=== PATIENT | female | born 1960 | race Caucasian/White ===

== ENCOUNTER 2022-05-16 14:33 | Outpatient (RCR) | payer OTHER, SELFPAY ==
[2022-05-16 15:02] LABS: Basophils Absolute Auto 0.02 K/uL (0.00-0.30); Basophils Percent Auto 0.3 % (0.0-3.0); Eosinophils Absolute Auto 0.15 K/uL (0.00-0.50); Eosinophils Percent Auto 2.1 % (0.0-7.0); Hematocrit 41.3 % (33.0-51.0); Hemoglobin* 14.2 gm/dL (12.0-16.0); Immature Granulocytes Abs Auto 0.02 K/uL (0.00-0.30); Lymphocytes Absolute Auto 2.34 K/uL (0.90-2.90); Lymphocytes Percent Auto 33.2 % (20-44); Mean Corpuscular HGB Conc 34 gm/dL (32-36); Mean Corpuscular Hemoglobin 39 pg (26-34); Mean Corpuscular Volume 112 fL (80-100); Monocytes Percent Auto 5.5 % (0.0-11.0); Neutrophils Absolute Auto 4.13 K/uL (1.7-7.0); Neutrophils Percent Auto 58.6 % (42.0-72.0); Platelet Count* 394 K/uL (140-440); RDW Coefficient of Variation % 12.7 % (11.5-15.5); Red Blood Count 3.68 m/uL (4.00-5.20); White Blood Count* 7.05 K/uL (4.50-11.00)
[2022-05-16 15:17] LABS: Slide Review Reflex No
[2022-05-16 15:20] LABS: Albumin* 4.3 g/dL (3.3-5.0); Chloride* 102 mmol/L (96-114); Potassium* 4.2 mmol/L (3.6-5.1); Sodium* 135 mmol/L (135-149)
[2022-05-16 15:22] LABS: Creatinine* 0.8 mg/dL (0.5-1.5); Estimated Glomerular Filt Rate 84 ml/min
[2022-05-16 15:23] LABS: Alanine Aminotransferase* 14 U/L (4-35); Alkaline Phosphatase* 73 U/L (40-150); Aspartate Amino Transferase* 27 U/L (12-35); Bilirubin Total* 0.7 mg/dL (0.1-1.5); Blood Urea Nitrogen* 16 mg/dL (7-30); Calcium* 9.5 mg/dL (8.4-10.6); Carbon Dioxide* 29 mmol/L (20-32); Glucose* 94 mg/dL (60-115); Lactate Dehydrogenase* 434 U/L (313-618)
== END 2022-05-28 23:59 | disposition home or self-care (01) ==
LOC: CCIC 14:33
PROVIDERS: PCP Family Medicine; Visit Provider Internal Medicine Hematology & Oncology
DX: D47.3 Essential (hemorrhagic) thrombocythemia (principal); F43.9 Reaction to severe stress, unspecified
CPT/HCPCS: 36415; 80053; 83615; 85025; 99212; 99213; 99214

== ENCOUNTER 2022-12-20 08:30 | Outpatient (RCR) | payer OTHER, SELFPAY ==
[2022-07-17 09:18] LABS: Basophils Absolute Auto 0.02 K/uL (0.00-0.30); Basophils Percent Auto 0.3 % (0.0-3.0); Eosinophils Absolute Auto 0.14 K/uL (0.00-0.50); Eosinophils Percent Auto 1.9 % (0.0-7.0); Hematocrit 40.4 % (33.0-51.0); Immature Granulocytes Abs Auto 0.02 K/uL (0.00-0.30); Lymphocytes Absolute Auto 1.91 K/uL (0.90-2.90); Mean Corpuscular HGB Conc 35 gm/dL (32-36); Mean Corpuscular Hemoglobin 39 pg (26-34); Mean Corpuscular Volume 111 fL (80-100); Monocytes Percent Auto 6.1 % (0.0-11.0); Neutrophils Percent Auto 65.4 % (42.0-72.0); Platelet Count* 398 K/uL (140-440); RDW Coefficient of Variation % 12.8 % (11.5-15.5); Red Blood Count 3.63 m/uL (4.00-5.20); White Blood Count* 7.34 K/uL (4.50-11.00)
[2022-07-17 09:21] LABS: Slide Review Reflex No
[2022-07-17 09:33] LABS: Albumin* 4.4 g/dL (3.3-5.0)
[2022-07-17 09:34] LABS: Chloride* 104 mmol/L (96-114); Potassium* 4.9 mmol/L (3.6-5.1); Sodium* 139 mmol/L (135-149)
[2022-07-17 09:36] LABS: Aspartate Amino Transferase* 20 U/L (12-35); Bilirubin Total* 0.5 mg/dL (0.1-1.5); Carbon Dioxide* 28 mmol/L (20-32); Creatinine* 0.8 mg/dL (0.5-1.5); Estimated Glomerular Filt Rate 84 ml/min; Total Protein* 7.3 g/dL (6.0-8.3)
[2022-07-17 09:37] LABS: Alanine Aminotransferase* 13 U/L (4-35); Alkaline Phosphatase* 76 U/L (40-150); Blood Urea Nitrogen* 15 mg/dL (7-30); Calcium* 9.3 mg/dL (8.4-10.6); Glucose* 90 mg/dL (60-115); Lactate Dehydrogenase* 444 U/L (313-618)
--- NOTE | 2022-07-18 15:25 | ONC.NURNOTE ---
Labs reviewed by Dr. Negron, keno writer / runner called pt with results. No changes at this time. Next lab scheduled in August.
[2022-09-19 08:21] LABS: Basophils Absolute Auto 0.02 K/uL (0.00-0.30); Basophils Percent Auto 0.2 % (0.0-3.0); Eosinophils Percent Auto 2.2 % (0.0-7.0); Hematocrit 43.8 % (33.0-51.0); Immature Granulocytes Abs Auto 0.07 K/uL (0.00-0.30); Immature Granulocytes Pct Auto 0.8 %; Lymphocytes Percent Auto 27.9 % (20-44); Mean Corpuscular HGB Conc 34 gm/dL (32-36); Mean Corpuscular Hemoglobin 38 pg (26-34); Mean Corpuscular Volume 110 fL (80-100); Monocytes Percent Auto 6.8 % (0.0-11.0); Neutrophils Absolute Auto 5.57 K/uL (1.7-7.0); Neutrophils Percent Auto 62.1 % (42.0-72.0); Platelet Count* 491 K/uL (140-440); RDW Coefficient of Variation % 12.7 % (11.5-15.5); Red Blood Count 3.97 m/uL (4.00-5.20); White Blood Count* 8.97 K/uL (4.50-11.00)
[2022-09-19 08:26] LABS: Slide Review Reflex No
--- NOTE | 2022-09-19 08:44 | ONC.NURNOTE ---
Pt here for labs today; due for labs/f/u 10/2022. Reviewed provider options; pt opted to continue care at [facility] with a [place] provider. Sched with Dr. Tova Vincent 11/23.
--- NOTE | 2022-09-19 13:17 | ONC.NURNOTE ---
Lab results reviewed and called to [facility] as stable no dose change in hydrea and next appts have been made
[2022-11-23 11:06] LABS: Basophils Absolute Auto 0.02 K/uL (0.00-0.30); Basophils Percent Auto 0.2 % (0.0-3.0); Eosinophils Absolute Auto 0.13 K/uL (0.00-0.50); Eosinophils Percent Auto 1.5 % (0.0-7.0); Hematocrit 43.2 % (33.0-51.0); Hemoglobin* 14.9 gm/dL (12.0-16.0); Immature Granulocytes Abs Auto 0.05 K/uL (0.00-0.30); Immature Granulocytes Pct Auto 0.6 %; Lymphocytes Absolute Auto 2.08 K/uL (0.90-2.90); Lymphocytes Percent Auto 24.5 % (20-44); Mean Corpuscular HGB Conc 35 gm/dL (32-36); Mean Corpuscular Hemoglobin 37 pg (26-34); Mean Corpuscular Volume 108 fL (80-100); Monocytes Percent Auto 5.3 % (0.0-11.0); Neutrophils Absolute Auto 5.76 K/uL (1.7-7.0); Neutrophils Percent Auto 67.9 % (42.0-72.0); Platelet Count* 508 K/uL (140-440); RDW Coefficient of Variation % 12.8 % (11.5-15.5); Red Blood Count 3.99 m/uL (4.00-5.20); White Blood Count* 8.49 K/uL (4.50-11.00)
[2022-11-23 11:18] LABS: Albumin* 4.5 g/dL (3.3-5.0); Chloride* 105 mmol/L (96-114)
[2022-11-23 11:19] LABS: Potassium* 4.6 mmol/L (3.6-5.1); Sodium* 139 mmol/L (135-149)
[2022-11-23 11:21] LABS: Alkaline Phosphatase* 65 U/L (40-150); Aspartate Amino Transferase* 32 U/L (12-35); Bilirubin Total* 0.6 mg/dL (0.1-1.5); Carbon Dioxide* 30 mmol/L (20-32); Creatinine* 0.8 mg/dL (0.5-1.5); Estimated Glomerular Filt Rate 83 ml/min; Total Protein* 7.5 g/dL (6.0-8.3)
[2022-11-23 11:22] LABS: Alanine Aminotransferase* 19 U/L (4-35); Blood Urea Nitrogen* 14 mg/dL (7-30); Calcium* 9.5 mg/dL (8.4-10.6); Glucose* 126 mg/dL (60-115); Lactate Dehydrogenase* 213 U/L (120-246)
[2022-11-23 11:27] LABS: Slide Review Reflex Yes
[2022-11-23 11:28] LABS: Slide Review Acceptable Review (Acceptable)
[2022-12-20 08:32] LABS: Basophils Absolute Auto 0.03 K/uL (0.00-0.30); Basophils Percent Auto 0.4 % (0.0-3.0); Eosinophils Percent Auto 2.6 % (0.0-7.0); Hematocrit 47.3 % (33.0-51.0); Hemoglobin* 16.1 gm/dL (12.0-16.0); Immature Granulocytes Abs Auto 0.09 K/uL (0.00-0.30); Immature Granulocytes Pct Auto 1.2 %; Lymphocytes Absolute Auto 2.09 K/uL (0.90-2.90); Lymphocytes Percent Auto 26.9 % (20-44); Mean Corpuscular HGB Conc 34 gm/dL (32-36); Mean Corpuscular Hemoglobin 37 pg (26-34); Mean Corpuscular Volume 109 fL (80-100); Neutrophils Absolute Auto 4.81 K/uL (1.7-7.0); Neutrophils Percent Auto 61.9 % (42.0-72.0); Platelet Count* 483 K/uL (140-440); RDW Coefficient of Variation % 13.1 % (11.5-15.5); Red Blood Count 4.34 m/uL (4.00-5.20); White Blood Count* 7.76 K/uL (4.50-11.00)
[2022-12-20 08:44] LABS: Slide Review Reflex No
--- NOTE | 2022-12-27 13:04 | ONC.NURNOTE ---
Lab results reviewed by Dr Toribio and called to [facility] noted Hg and Plts next lab due in 2 months
== END 2023-01-13 23:59 | disposition home or self-care (01) ==
LOC: CCIC 08:30
PROVIDERS: Clinical Nurse Specialist; Internal Medicine Hematology & Oncology; PCP Family Medicine; Referring Provider Family Medicine; Visit Provider Internal Medicine Hematology & Oncology
DX: D47.3 Essential (hemorrhagic) thrombocythemia (principal)
CPT/HCPCS: 36415; 80053; 83615; 85025; 99212; 99214

== ENCOUNTER 2023-06-12 08:15 | Outpatient (RCR) | payer OTHER, SELFPAY ==
[2023-02-13 08:48] LABS: Albumin* 4.4 g/dL (3.3-5.0); Chloride* 103 mmol/L (96-114)
[2023-02-13 08:49] LABS: Potassium* 4.4 mmol/L (3.6-5.1); Sodium* 136 mmol/L (135-149)
[2023-02-13 08:51] LABS: Aspartate Amino Transferase* 22 U/L (12-35); Bilirubin Total* 0.5 mg/dL (0.1-1.5); Carbon Dioxide* 30 mmol/L (20-32); Creatinine* 0.7 mg/dL (0.5-1.5); Estimated Glomerular Filt Rate 98 ml/min; Total Protein* 7.5 g/dL (6.0-8.3)
[2023-02-13 08:52] LABS: Alanine Aminotransferase* 20 U/L (4-35); Alkaline Phosphatase* 67 U/L (40-150); Blood Urea Nitrogen* 12 mg/dL (7-30); Calcium* 9.4 mg/dL (8.4-10.6); Glucose* 92 mg/dL (60-115); Lactate Dehydrogenase* 181 U/L (120-246)
[2023-02-13 08:57] LABS: Basophils Absolute Auto 0.02 K/uL (0.00-0.30); Basophils Percent Auto 0.3 % (0.0-3.0); Eosinophils Absolute Auto 0.14 K/uL (0.00-0.50); Eosinophils Percent Auto 1.8 % (0.0-7.0); Hematocrit 42.5 % (33.0-51.0); Hemoglobin* 14.5 gm/dL (12.0-16.0); Immature Granulocytes Abs Auto 0.04 K/uL (0.00-0.30); Immature Granulocytes Pct Auto 0.5 %; Lymphocytes Absolute Auto 2.15 K/uL (0.90-2.90); Lymphocytes Percent Auto 27.3 % (20-44); Mean Corpuscular HGB Conc 34 gm/dL (32-36); Mean Corpuscular Hemoglobin 37 pg (26-34); Mean Corpuscular Volume 110 fL (80-100); Monocytes Percent Auto 7.1 % (0.0-11.0); Neutrophils Absolute Auto 4.96 K/uL (1.7-7.0); Platelet Count* 403 K/uL (140-440); RDW Coefficient of Variation % 13.6 % (11.5-15.5); Red Blood Count 3.88 m/uL (4.00-5.20); White Blood Count* 7.87 K/uL (4.50-11.00)
[2023-02-13 09:10] LABS: Slide Review Reflex No
--- NOTE | 2023-02-15 12:28 | ONC.NURNOTE ---
Patient called with blood test results and next appts made doses confirmed reports no concerns
[2023-04-17 08:32] LABS: Basophils Absolute Auto 0.01 K/uL (0.00-0.30); Basophils Percent Auto 0.1 % (0.0-3.0); Eosinophils Percent Auto 1.2 % (0.0-7.0); Hematocrit 42.7 % (33.0-51.0); Hemoglobin* 14.9 gm/dL (12.0-16.0); Immature Granulocytes Abs Auto 0.03 K/uL (0.00-0.30); Immature Granulocytes Pct Auto 0.4 %; Lymphocytes Absolute Auto 2.04 K/uL (0.90-2.90); Lymphocytes Percent Auto 24.9 % (20-44); Mean Corpuscular HGB Conc 35 gm/dL (32-36); Mean Corpuscular Hemoglobin 39 pg (26-34); Mean Corpuscular Volume 112 fL (80-100); Neutrophils Percent Auto 68.4 % (42.0-72.0); Platelet Count* 426 K/uL (140-440); RDW Coefficient of Variation % 13.3 % (11.5-15.5); White Blood Count* 8.19 K/uL (4.50-11.00)
[2023-04-17 08:35] LABS: Slide Review Reflex Yes
[2023-04-17 08:38] LABS: Slide Review Acceptable Review (Acceptable)
[2023-06-12 08:40] LABS: Basophils Absolute Auto 0.02 K/uL (0.00-0.30); Basophils Percent Auto 0.3 % (0.0-3.0); Eosinophils Percent Auto 1.4 % (0.0-7.0); Hematocrit 41.7 % (33.0-51.0); Hemoglobin* 14.3 gm/dL (12.0-16.0); Immature Granulocytes Abs Auto 0.02 K/uL (0.00-0.30); Immature Granulocytes Pct Auto 0.3 %; Lymphocytes Absolute Auto 1.46 K/uL (0.90-2.90); Lymphocytes Percent Auto 20.2 % (20-44); Mean Corpuscular HGB Conc 34 gm/dL (32-36); Mean Corpuscular Hemoglobin 39 pg (26-34); Mean Corpuscular Volume 114 fL (80-100); Monocytes Percent Auto 5.1 % (0.0-11.0); Neutrophils Percent Auto 72.7 % (42.0-72.0); Platelet Count* 362 K/uL (140-440); RDW Coefficient of Variation % 12.9 % (11.5-15.5); Red Blood Count 3.66 m/uL (4.00-5.20); White Blood Count* 7.22 K/uL (4.50-11.00)
[2023-06-12 08:41] LABS: Albumin* 4.2 g/dL (3.3-5.0); Chloride* 102 mmol/L (96-114); Potassium* 4.3 mmol/L (3.6-5.1); Sodium* 138 mmol/L (135-149)
[2023-06-12 08:44] LABS: Alanine Aminotransferase* 21 U/L (4-35); Alkaline Phosphatase* 74 U/L (40-150); Aspartate Amino Transferase* 25 U/L (12-35); Bilirubin Total* 0.5 mg/dL (0.1-1.5); Blood Urea Nitrogen* 13 mg/dL (7-30); Carbon Dioxide* 29 mmol/L (20-32); Creatinine* 0.7 mg/dL (0.5-1.5); Estimated Glomerular Filt Rate 98 ml/min; Glucose* 116 mg/dL (60-115); Total Protein* 7.3 g/dL (6.0-8.3)
[2023-06-12 08:45] LABS: Calcium* 9.4 mg/dL (8.4-10.6)
[2023-06-12 08:56] LABS: Slide Review Reflex No
== END 2023-08-12 23:59 | disposition home or self-care (01) ==
LOC: CCIC 08:15
PROVIDERS: Clinical Nurse Specialist; PCP Family Medicine; Referring Provider Family Medicine; Visit Provider Internal Medicine Hematology & Oncology
DX: D47.3 Essential (hemorrhagic) thrombocythemia (principal); Z79.82 Long term (current) use of aspirin
CPT/HCPCS: 36415; 80053; 83615; 85025; 99212; 99213; 99214

== ENCOUNTER 2023-08-09 12:30 | Outpatient (CLI) | payer OTHER, SELFPAY ==
--- NOTE | 2023-08-09 13:17 | W.ANESCHARGE ---
Anesthesia Charges Start Date/Time Anesthesia Start Date: 08/09/23 Anesthesia Start Time: 13:58 Stop Date/Time Anesthesia Stop Date: 08/09/23 Anesthesia Stop Time: 14:14
--- NOTE | 2023-08-09 14:16 | W.ANESCHARGE ---
Anesthesia Charges Start Date/Time Anesthesia Start Date: 08/09/23 Anesthesia Start Time: 13:58 Stop Date/Time Anesthesia Stop Date: 08/09/23 Anesthesia Stop Time: 14:14
== END 2023-08-09 12:31 | disposition home or self-care (01) ==
LOC: OP CLINIC 12:30
PROVIDERS: PCP Family Medicine; Visit Provider Surgery
DX: R19.8 Other specified symptoms and signs involving the digestive system and abdomen (principal); K44.9 Diaphragmatic hernia without obstruction or gangrene; K31.89 Other diseases of stomach and duodenum
CPT/HCPCS: 00731; 43239; 88305; J2704

== ENCOUNTER 2023-08-14 11:14 | Day surgery (SDC) | payer OTHER, SELFPAY ==
[2023-08-13] MEDS: LACTATED RINGERS 1000 ML 1,000 ML 100 ML IV (10:40)
[2023-08-14] VITALS (12 sets, daily range): BP systolic 92–127; BP diastolic 63–77; PULSE 63–84; RESP 14–20; TEMP 36–36.8; O2SAT 90–100; BMI 29.2
--- NOTE | 2023-08-14 13:02 | W.ANESCHARGE ---
Anesthesia Charges Start Date/Time Anesthesia Start Date: 08/14/23 Anesthesia Start Time: 13:20 Stop Date/Time Anesthesia Stop Date: 08/14/23 Anesthesia Stop Time: 14:25
[2023-08-14] MEDS: CEFAZOLIN 2 GM INJ IVP (13:34)
[2023-08-14] MEDS: BUPIVACAINE 0.25% 30 ML 10 ML INJECTION (13:37)
--- NOTE | 2023-08-14 13:39 | SUR.OPER ---
PATIENT QUESTIONS ANSWERED SATISFACTORILY PREOPERATIVELY. PATIENT BROUGHT TO OR #1 PER CART. Patient positioned supine on OR #1 bed. The perioperative team supported arms bilaterally on arm boards. Final approval of positioning by surgeon.
--- NOTE | 2023-08-14 14:10 | P.GSOP_ITS ---
Operative Note Pre-op diagnosis: 1. Chronic cholecystitis. Post-op diagnosis: Same Type of Procedure: 1. Laparoscopic cholecystectomy. Indications: 63-year-old female was seen in clinic for evaluation of recurrent episodes of right upper quadrant pain for a long time. In the past year patient stated that her symptoms became more frequent and happened at random times. She was not sure if that was related to food but noticed that hamburger, pizza, and spaghetti with sauce made her pain worse. The pain occasionally radiated to her right shoulder. 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 Now, the pain has been so bothersome, that she presented to clinic. Patient did a trial of 2 weeks of proton pump inhibitors with no change in her pain. Upon her workup she was found to have normal liver function tests. Her lipase and WBC were normal. A gallbladder ultrasound was obtained that showed cholelithiasis with gallbladder wall of 2 mm and common bile duct of normal size. On clinical exam patient had tenderness to palpation in the right upper quadrant with negative Freeman sign. Patient also complained of a burning chest pain and an upper endoscopy was obtained. The Upper endoscopy did not show any inflammation or ulcerations of her esophagus, stomach, or duodenum. Given patient's clinical history and her laboratory and i maging findings, chronic cholecystitis was suspected, and laparoscopic cholecystectomy was recommended. The procedure was discussed in detail. The risks associated procedure including infection, bleeding, injury to intra- abdominal organs, and injury to the common bile duct were all discussed with the patient, and she agreed to proceed. Procedure Description: After discussing the risks and benefits of the procedure, the patient signed informed consent.? The operative site was marked and the patient was brought to the operating room and placed on the operating table in supine position.? Care was taken to pad the patient's pressure points.?? The patient was then intubated by anesthesia.?? The operative site was then prepped and draped in the usual sterile fashion.? A time-out was then performed. A 5-mm laparoscopy port was placed in the left upper quadrant guided by a 5-mm laparoscope placed into a translucent trochar.~ Passage through the layers of the abdominal wall was visualized with the laparoscope.~ A pneumoperitoneum was established. A 0-degree 5-mm laparoscope was advanced into the abdomen. The abdomen was briefly surveyed, and no adhesions were noted. A 10-mm port were placed infraumbilically and two more 5 mm ports were placed on the right under direct visualization by laparoscope. The camera was then changed to 10 mm 30- degree scope and placed into the abdomen through the 10 mm port. The left upper quadrant port entrance was examined and no injury to intra-abdominal organs was identified. The gallbladder was identified, the fundus grasped and retracted cephalad. Omentum was adherent to the proximal half of the gallbladder. Those adhesions were taken down with hook cautery. The infundibulum was grasped and retracted laterally, exposing the peritoneum overlying the triangle of Calot. This was then divided and exposed in a blunt fashion and with hook cautery. Common bile duct was not identified but care was taken not to injure it. The cystic artery was anterior to the gallbladder and was clearly going into the gallbladder. This was dissected circumferentially and clipped with three 5 mm clips on the patient's side and a single clip on the specimen side and divided with scissors. The cystic duct was clearly identified and bluntly dissected circumferentially. The cystic duct were clearly going into the gallbladder. The cystic duct was then doubly ligated with surgical clips on the patient's side and singly clipped on the gallbladder side and divided. The gallbladder was dissected from the liver bed in retrograde fashion using hookcautery. During gallbladder dissection, an opening was made in the gallbladder and clear green bile spilled into the abdominal cavity. This was suctioned. When the gallbladder was free, it was placed into an Endo-Catch bag and removed through the infraumbilical incision. Surgical site was examined for bleeding. No bleeding was seen in the surgical field. The right upper quadrant was irrigated with copious amounts of normal saline. The fascia of the infraumbilical incision was then closed with 0-0 vicryl using Klaus Naveen needle under direct visualization. Pneumoperitoneum was completely reduced after viewing removal of the trocars under direct vision. The skin was then closed with 4-0 monocryl and steristrips were applied. Instrument, sponge, and needle counts were correct at closure and at the conclusion of the case. The patient was transferred to PACU in stable condition. Findings: Floppy gallbladder with no evidence of acute inflammation. Surgeon: Peri Barbosa MD Estimated blood loss (mL): 5 Specimen: Gallbladder Condition: stable Disposition: PACU Date of procedure: 08/14/23
--- NOTE | 2023-08-14 14:26 | W.ANESCHARGE ---
Anesthesia Charges Start Date/Time Anesthesia Start Date: 08/14/23 Anesthesia Start Time: 13:20 Stop Date/Time Anesthesia Stop Date: 08/14/23 Anesthesia Stop Time: 14:25
[2023-08-14] MEDS: fentaNYL 100 MCG/2 ML inj 50 MCG IVP ×2 (14:32→14:38)
== END 2023-08-14 15:55 | disposition home or self-care (01) ==
PROVIDERS: PCP Physician Assistant; Visit Provider Surgery
PROC: 0FT44ZZ Resection of Gallbladder, Percutaneous Endoscopic Approach (ICD-10-PCS; CPT 47562; principal; 2023-08-14 12:45)
DX: K80.10 Calculus of gallbladder with chronic cholecystitis without obstruction (principal)
CPT/HCPCS: 47562; 790; 88304; J0665; J0690; J1100; J1170; J1885; J2405; J2704; J3010; J3490; J7120

== ENCOUNTER 2023-11-28 12:00 | Outpatient (RCR) | payer BC, OTHER, SELFPAY ==
[2023-11-28 12:20] LABS: Basophils Absolute Auto 0.02 K/uL (0.00-0.30); Basophils Percent Auto 0.3 % (0.0-3.0); Eosinophils Absolute Auto 0.08 K/uL (0.00-0.50); Eosinophils Percent Auto 1.3 % (0.0-7.0); Hematocrit 41.5 % (33.0-51.0); Hemoglobin* 14.4 gm/dL (12.0-16.0); Immature Granulocytes Abs Auto 0.01 K/uL (0.00-0.30); Immature Granulocytes Pct Auto 0.2 %; Lymphocytes Percent Auto 34.1 % (20-44); Mean Corpuscular HGB Conc 35 gm/dL (32-36); Mean Corpuscular Hemoglobin 41 pg (26-34); Mean Corpuscular Volume 118 fL (80-100); Monocytes Percent Auto 6.8 % (0.0-11.0); Neutrophils Absolute Auto 3.52 K/uL (1.7-7.0); Neutrophils Percent Auto 57.3 % (42.0-72.0); Platelet Count* 360 K/uL (140-440); RDW Coefficient of Variation % 12.4 % (11.5-15.5); Red Blood Count 3.52 m/uL (4.00-5.20); White Blood Count* 6.15 K/uL (4.50-11.00)
[2023-11-28 12:27] LABS: Slide Review Reflex No
[2023-11-28 12:42] LABS: Albumin* 4.3 g/dL (3.3-5.0); Chloride* 104 mmol/L (96-114); Potassium* 4.6 mmol/L (3.6-5.1); Sodium* 138 mmol/L (135-149)
[2023-11-28 12:44] LABS: Creatinine* 0.9 mg/dL (0.5-1.5); Estimated Glomerular Filt Rate 72 ml/min
[2023-11-28 12:45] LABS: Alanine Aminotransferase* 15 U/L (4-35); Alkaline Phosphatase* 66 U/L (40-150); Anion Gap 7 mEq/L (7-15); Aspartate Amino Transferase* 22 U/L (12-35); Bilirubin Total* 0.3 mg/dL (0.1-1.5); Blood Urea Nitrogen* 13 mg/dL (7-30); Carbon Dioxide* 27 mmol/L (20-32); Glucose* 102 mg/dL (60-115); Lactate Dehydrogenase* 194 U/L (120-246); Total Protein* 7.2 g/dL (6.0-8.3)
[2023-11-28 12:46] LABS: Calcium* 9.5 mg/dL (8.4-10.6)
== END 2024-02-27 23:59 | disposition home or self-care (01) ==
LOC: CCIC 12:00
PROVIDERS: PCP Physician Assistant; Referring Provider Physician Assistant; Visit Provider Internal Medicine Hematology & Oncology
DX: D47.3 Essential (hemorrhagic) thrombocythemia (principal); Z79.82 Long term (current) use of aspirin
CPT/HCPCS: 36415; 80053; 83615; 85025; 99213; 99214; G0463

== ENCOUNTER 2024-07-16 12:15 | Outpatient (RCR) | payer BC, SELFPAY ==
[2024-03-18 08:37] LABS: Basophils Absolute Auto 0.01 K/uL (0.00-0.30); Basophils Percent Auto 0.2 % (0.0-3.0); Eosinophils Percent Auto 1.6 % (0.0-7.0); Hematocrit 41.7 % (33.0-51.0); Hemoglobin* 14.1 gm/dL (12.0-16.0); Immature Granulocytes Abs Auto 0.01 K/uL (0.00-0.30); Immature Granulocytes Pct Auto 0.2 %; Lymphocytes Absolute Auto 1.85 K/uL (0.90-2.90); Lymphocytes Percent Auto 30.3 % (20-44); Mean Corpuscular HGB Conc 34 gm/dL (32-36); Mean Corpuscular Hemoglobin 40 pg (26-34); Mean Corpuscular Volume 118 fL (80-100); Monocytes Percent Auto 7.7 % (0.0-11.0); Neutrophils Absolute Auto 3.67 K/uL (1.7-7.0); Platelet Count* 400 K/uL (140-440); RDW Coefficient of Variation % 12.8 % (11.5-15.5); Red Blood Count 3.54 m/uL (4.00-5.20); White Blood Count* 6.11 K/uL (4.50-11.00)
[2024-03-18 08:43] LABS: Slide Review Reflex No
[2024-03-18 08:56] LABS: Albumin* 4.6 g/dL (3.3-5.0); Chloride* 105 mmol/L (96-114); Sodium* 138 mmol/L (135-149)
[2024-03-18 08:57] LABS: Potassium* 4.9 mmol/L (3.6-5.1)
[2024-03-18 08:59] LABS: Alkaline Phosphatase* 63 U/L (40-150); Anion Gap 5 mEq/L (7-15); Aspartate Amino Transferase* 29 U/L (12-35); Bilirubin Total* 0.6 mg/dL (0.1-1.5); Blood Urea Nitrogen* 12 mg/dL (7-30); Calcium* 9.2 mg/dL (8.4-10.6); Carbon Dioxide* 28 mmol/L (20-32); Creatinine* 0.8 mg/dL (0.5-1.5); Estimated Glomerular Filt Rate 83 ml/min; Glucose* 85 mg/dL (60-115); Lactate Dehydrogenase* 180 U/L (120-246); Total Protein* 7.7 g/dL (6.0-8.3)
[2024-03-18 09:00] LABS: Alanine Aminotransferase* 17 U/L (4-35)
--- NOTE | 2024-03-19 14:31 | ONC.NURNOTE ---
lab reviewed by Dr Negron as stable called to [facility] continue Hydrea 1500 mg 2d/wk a 1000 mg 5 d/wk next appts scheduled
[2024-07-16 12:21] LABS: Eosinophils Absolute Auto 0.07 K/uL (0.00-0.50); Eosinophils Percent Auto 1.4 % (0.0-7.0); Hematocrit 38.2 % (33.0-51.0); Hemoglobin* 12.9 gm/dL (12.0-16.0); Immature Granulocytes Abs Auto 0.02 K/uL (0.00-0.30); Immature Granulocytes Pct Auto 0.4 %; Lymphocytes Absolute Auto 1.68 K/uL (0.90-2.90); Lymphocytes Percent Auto 33.5 % (20-44); Mean Corpuscular HGB Conc 34 gm/dL (32-36); Mean Corpuscular Hemoglobin 43 pg (26-34); Mean Corpuscular Volume 126 fL (80-100); Monocytes Percent Auto 6.6 % (0.0-11.0); Neutrophils Absolute Auto 2.91 K/uL (1.7-7.0); Neutrophils Percent Auto 58.1 % (42.0-72.0); Platelet Count* 297 K/uL (140-440); RDW Coefficient of Variation % 13.1 % (11.5-15.5); Red Blood Count 3.03 m/uL (4.00-5.20); White Blood Count* 5.01 K/uL (4.50-11.00)
[2024-07-16 12:26] LABS: Slide Review Reflex No
[2024-07-16 12:35] LABS: Albumin* 4.3 g/dL (3.3-5.0); Chloride* 105 mmol/L (96-114); Sodium* 137 mmol/L (135-149)
[2024-07-16 12:36] LABS: Potassium* 4.3 mmol/L (3.6-5.1)
[2024-07-16 12:38] LABS: Alkaline Phosphatase* 63 U/L (40-150); Anion Gap 5 mEq/L (7-15); Aspartate Amino Transferase* 24 U/L (12-35); Bilirubin Total* 0.3 mg/dL (0.1-1.5); Blood Urea Nitrogen* 14 mg/dL (7-30); Carbon Dioxide* 27 mmol/L (20-32); Creatinine* 0.8 mg/dL (0.5-1.5); Estimated Glomerular Filt Rate 83 ml/min; Lactate Dehydrogenase* 189 U/L (120-246); Total Protein* 6.8 g/dL (6.0-8.3)
[2024-07-16 12:39] LABS: Alanine Aminotransferase* 11 U/L (4-35); Calcium* 9.2 mg/dL (8.4-10.6); Glucose* 98 mg/dL (60-115)
== END 2024-09-14 23:59 | disposition home or self-care (01) ==
LOC: CCIC 12:15
PROVIDERS: PCP Physician Assistant; Referring Provider Physician Assistant; Visit Provider Internal Medicine Hematology & Oncology
DX: D47.3 Essential (hemorrhagic) thrombocythemia (principal); M62.831 Muscle spasm of calf
CPT/HCPCS: 36415; 80053; 83615; 85025; 99214; G0463

== ENCOUNTER 2025-01-19 12:00 | Outpatient (RCR) | payer BC, SELFPAY ==
[2024-10-13 08:33] LABS: Basophils Absolute Auto 0.01 K/uL (0.00-0.30); Basophils Percent Auto 0.2 % (0.0-3.0); Eosinophils Absolute Auto 0.09 K/uL (0.00-0.50); Eosinophils Percent Auto 1.4 % (0.0-7.0); Hematocrit 42.2 % (33.0-51.0); Hemoglobin* 14.6 gm/dL (12.0-16.0); Immature Granulocytes Abs Auto 0.01 K/uL (0.00-0.30); Immature Granulocytes Pct Auto 0.2 %; Lymphocytes Percent Auto 25.7 % (20-44); Mean Corpuscular HGB Conc 35 gm/dL (32-36); Mean Corpuscular Hemoglobin 41 pg (26-34); Mean Corpuscular Volume 119 fL (80-100); Neutrophils Absolute Auto 4.34 K/uL (1.7-7.0); Neutrophils Percent Auto 65.5 % (42.0-72.0); Platelet Count* 334 K/uL (140-440); Red Blood Count 3.54 m/uL (4.00-5.20); White Blood Count* 6.61 K/uL (4.50-11.00)
[2024-10-13 08:36] LABS: Slide Review Reflex No
[2024-10-13 08:44] LABS: Albumin* 4.5 g/dL (3.3-5.0); Chloride* 101 mmol/L (96-114); Sodium* 136 mmol/L (135-149)
[2024-10-13 08:45] LABS: Potassium* 4.4 mmol/L (3.6-5.1)
[2024-10-13 08:47] LABS: Alanine Aminotransferase* 13 U/L (4-35); Alkaline Phosphatase* 68 U/L (40-150); Anion Gap 6 mEq/L (7-15); Aspartate Amino Transferase* 19 U/L (12-35); Bilirubin Total* 0.4 mg/dL (0.1-1.5); Blood Urea Nitrogen* 13 mg/dL (7-30); Carbon Dioxide* 29 mmol/L (20-32); Creatinine* 0.7 mg/dL (0.5-1.5); Estimated Glomerular Filt Rate 97 ml/min; Glucose* 98 mg/dL (60-115); Lactate Dehydrogenase* 197 U/L (120-246); Total Protein* 7.4 g/dL (6.0-8.3)
[2024-10-13 08:48] LABS: Calcium* 9.7 mg/dL (8.4-10.6)
--- NOTE | 2024-10-13 13:41 | ONC.NURNOTE ---
Lab results with in parameters- reviewed by Dr Negron and called to Hellen govea appts reviewed in December
[2025-01-19 12:30] LABS: Basophils Absolute Auto 0.01 K/uL (0.00-0.30); Basophils Percent Auto 0.2 % (0.0-3.0); Eosinophils Absolute Auto 0.08 K/uL (0.00-0.50); Eosinophils Percent Auto 1.4 % (0.0-7.0); Hemoglobin* 13.6 gm/dL (12.0-16.0); Immature Granulocytes Abs Auto 0.02 K/uL (0.00-0.30); Immature Granulocytes Pct Auto 0.4 %; Lymphocytes Absolute Auto 1.68 K/uL (0.90-2.90); Lymphocytes Percent Auto 30.4 % (20-44); Mean Corpuscular HGB Conc 35 gm/dL (32-36); Mean Corpuscular Hemoglobin 43 pg (26-34); Mean Corpuscular Volume 122 fL (80-100); Monocytes Percent Auto 5.4 % (0.0-11.0); Neutrophils Absolute Auto 3.44 K/uL (1.7-7.0); Neutrophils Percent Auto 62.2 % (42.0-72.0); Platelet Count* 306 K/uL (140-440); White Blood Count* 5.53 K/uL (4.50-11.00)
[2025-01-19 12:32] LABS: Slide Review Reflex No
[2025-01-19 12:34] LABS: Albumin* 4.5 g/dL (3.3-5.0); Chloride* 104 mmol/L (96-114); Sodium* 138 mmol/L (135-149)
[2025-01-19 12:35] LABS: Potassium* 4.2 mmol/L (3.6-5.1)
[2025-01-19 12:37] LABS: Alanine Aminotransferase* 17 U/L (4-35); Alkaline Phosphatase* 65 U/L (40-150); Anion Gap 7 mEq/L (7-15); Aspartate Amino Transferase* 28 U/L (12-35); Bilirubin Total* 0.5 mg/dL (0.1-1.5); Blood Urea Nitrogen* 15 mg/dL (7-30); Carbon Dioxide* 27 mmol/L (20-32); Creatinine* 0.8 mg/dL (0.5-1.5); Estimated Glomerular Filt Rate 82 ml/min; Total Protein* 7.1 g/dL (6.0-8.3)
[2025-01-19 12:38] LABS: Calcium* 9.4 mg/dL (8.4-10.6); Glucose* 98 mg/dL (60-115); Lactate Dehydrogenase* 190 U/L (120-246)
--- NOTE | 2025-02-05 12:48 | ONC.NURNOTE ---
Dr. Negron called pt on 02/04/25 with results of Brain MRI.
== END 2025-04-11 23:59 | disposition home or self-care (01) ==
LOC: CCIC 12:00
PROVIDERS: PCP Physician Assistant; Referring Provider Physician Assistant; Visit Provider Internal Medicine Hematology & Oncology
DX: D47.3 Essential (hemorrhagic) thrombocythemia (principal); M62.831 Muscle spasm of calf; Z79.82 Long term (current) use of aspirin
CPT/HCPCS: 36415; 80053; 83615; 85025; 99213; 99214; G0463

== ENCOUNTER 2025-01-28 14:07 | Outpatient (CLI) | payer BC, SELFPAY ==
--- NOTE | 2025-01-28 14:30 | CRLHL7_ITS ---
For Patients: As a result of the Century Cures Act, medical imaging exams and procedure reports are released immediately into your electronic medical record. You may view this report before your referring provider. If you have questions, please contact your health care provider. INDICATION: Thrombocytopenia. Balance and walking issues. TECHNIQUE: Routine multiplanar multi sequence MRI images of the brain are obtained with and without gadolinium contrast. 16 cc of Dotarem contrast utilized. FINDINGS: The lateral 3rd and 4th ventricles are normal in size and configuration. No evidence of intracranial hemorrhage. No subdural or epidural fluid collections. No mass effect. No evidence of recent ischemic infarction. No areas of diffusion restriction. The ventricles are normal in size and shape. No focal brain edema or mass effect. No enhancing intra-axial or extra-axial lesions. The brainstem and cerebellum are normal as visualized. The orbits, sella and skull base are unremarkable. IMPRESSION: Negative MRI brain. No evidence of intracranial hemorrhage, focal infarction, mass effect or enhancing lesion. Dictated by Luis Haji MD @ 01/29/2025 5:37:45 PM (Electronically Signed)
== END 2025-01-28 14:08 | disposition home or self-care (01) ==
LOC: MRI 14:09
PROVIDERS: PCP Physician Assistant; Visit Provider Internal Medicine Hematology & Oncology
DX: D47.3 Essential (hemorrhagic) thrombocythemia (principal); R26.89 Other abnormalities of gait and mobility
CPT/HCPCS: 70553; A9575

== ENCOUNTER 2025-07-27 12:30 | Outpatient (RCR) | payer BC, MEDICARE, SELFPAY ==
[2025-04-20 08:36] LABS: Hematocrit* 37.9 % (33.0-51.0); Hemoglobin* 13.3 gm/dL (12.0-16.0); Immature Granulocytes Abs Auto 0.01 K/uL (0.00-0.30); Immature Granulocytes Pct Auto 0.2 %; Lymphocytes Absolute Auto 1.66 K/uL (0.90-2.90); Mean Corpuscular HGB Conc 35 gm/dL (32-36); Mean Corpuscular Hemoglobin 42 pg (26-34); Mean Corpuscular Volume 121 fL (80-100); RDW Coefficient of Variation % 12.1 % (11.5-15.5); Red Blood Count* 3.14 m/uL (4.00-5.20); White Blood Count* 5.71 K/uL (4.50-11.00)
[2025-04-20 08:40] LABS: Slide Review Reflex No
[2025-04-20 08:50] LABS: Albumin* 4.4 g/dL (3.3-5.0); Chloride* 103 mmol/L (96-114); Potassium* 4.6 mmol/L (3.6-5.1); Sodium* 137 mmol/L (135-149)
[2025-04-20 08:53] LABS: Alanine Aminotransferase* 13 U/L (4-35); Alkaline Phosphatase* 65 U/L (40-150); Anion Gap 6 mEq/L (7-15); Aspartate Amino Transferase* 23 U/L (12-35); Bilirubin Total* 0.4 mg/dL (0.1-1.5); Blood Urea Nitrogen* 17 mg/dL (7-30); Calcium* 9.9 mg/dL (8.4-10.6); Carbon Dioxide* 28 mmol/L (20-32); Creatinine* 1.0 mg/dL (0.5-1.5); Estimated Glomerular Filt Rate 63 ml/min; Glucose* 91 mg/dL (60-115); Total Protein* 7.2 g/dL (6.0-8.3)
--- NOTE | 2025-04-20 14:41 | ONC.NURNOTE ---
lab results reviewed by Dr Negron called to [facility] dose unchanged- Hydrea 1500mg 2D/wk and 1000 mg 5D/wk next lab and Provider visit is in 3 mths hydrea refilled to [facility] today
--- NOTE | 2025-04-21 14:31 | ONC.NURNOTE ---
message left on VM- labs stable- continue same dosing Hydrea next lab appt set up for Sept
[2025-07-27 12:22] LABS: Hematocrit* 38.0 % (33.0-51.0); Hemoglobin* 13.3 gm/dL (12.0-16.0); Immature Granulocytes Abs Auto 0.01 K/uL (0.00-0.30); Immature Granulocytes Pct Auto 0.2 %; Lymphocytes Absolute Auto 1.89 K/uL (0.90-2.90); Mean Corpuscular HGB Conc 35 gm/dL (32-36); Mean Corpuscular Hemoglobin 42 pg (26-34); Mean Corpuscular Volume 121 fL (80-100); RDW Coefficient of Variation % 12.4 % (11.5-15.5); Red Blood Count* 3.14 m/uL (4.00-5.20); White Blood Count* 5.75 K/uL (4.50-11.00)
[2025-07-27 12:34] LABS: Albumin* 4.2 g/dL (3.3-5.0); Chloride* 102 mmol/L (96-114); Potassium* 4.7 mmol/L (3.6-5.1); Sodium* 135 mmol/L (135-149)
[2025-07-27 12:36] LABS: Alanine Aminotransferase* 11 U/L (4-35); Aspartate Amino Transferase* 22 U/L (12-35); Blood Urea Nitrogen* 15 mg/dL (7-30); Creatinine* 0.9 mg/dL (0.5-1.5); Estimated Glomerular Filt Rate 71 ml/min
[2025-07-27 12:37] LABS: Alkaline Phosphatase* 64 U/L (40-150); Anion Gap 5 mEq/L (7-15); Bilirubin Total* 0.2 mg/dL (0.1-1.5); Calcium* 9.5 mg/dL (8.4-10.6); Carbon Dioxide* 28 mmol/L (20-32); Glucose* 98 mg/dL (60-115); Slide Review Reflex No; Total Protein* 6.7 g/dL (6.0-8.3)
== END 2025-10-17 23:59 | disposition home or self-care (01) ==
LOC: CCIC 12:30
PROVIDERS: PCP Physician Assistant; Referring Provider Physician Assistant; Visit Provider Internal Medicine Hematology & Oncology
DX: D47.3 Essential (hemorrhagic) thrombocythemia (principal); M62.831 Muscle spasm of calf; Z79.82 Long term (current) use of aspirin; Z79.899 Other long term (current) drug therapy
CPT/HCPCS: 36415; 80053; 83615; 85025; 99214; G0463